=== PATIENT | male | born 1965 | race Caucasian/White ===

== ENCOUNTER 2022-07-14 01:18 | Emergency (ER) | payer SELFPAY ==
[2022-07-14] MEDS ORDERED: TETRACAINE HCL 0.5% 4ML OPTH ONE (01:34)
[2022-07-14] MEDS ORDERED: HYDROCODONE/APAP 10/325 TAB ONE (01:34)
[2022-07-14] MEDS ORDERED: FLUORESCEIN SODIUM 1 MG/WRAP ONE (01:34)
[2022-07-14] MEDS ORDERED: NEO/POLY/DEX OPTH 3.5 GM TUBE ONE (02:58)
[2022-07-14] MEDS ORDERED: CYCLOPENTOLATE 2% OPTH 2 ML ONE (02:58)
--- NOTE | 2022-07-14 03:02 | ER ---
Nurse's Notes [facility] Name: Brayden Goode Age: 57 yrs Sex: Male : 1965 Arrival Date: 07/14/2022 Time: 01:18 Bed 8 Private MD: Diagnosis: Photokeratitis, bilateral;Ocular pain, left eye;Ocular pain, right eye Presentation: 07/14 01:30 Chief complaint: Patient states: I am not sure what I've done to my eyes but the both kd3 hurt so much and i cannot open them. the pain started about an hour ago. the only things i can think of is, i was staring at a fluorescent light about three hours ago. The bulb didn't bust or anything. 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 Coronavirus screen: Vaccine status: Patient reports being unvaccinated. Ebola Screen: No symptoms or risks identified at this time. Mechanism of Injury: unknown. Initial Sepsis Screen: Does the patient meet any 2 criteria? No. Patient's initial sepsis screen is negative. Does the patient have a suspected source of infection? No. Patient's initial sepsis screen is negative. Risk Assessment: Do you want to hurt yourself or someone else? Patient reports no desire to harm self or others. Onset of symptoms was July 14, 2022. 01:30 Method Of Arrival: Ambulatory kd3 01:30 Acuity: TAYLOR 3 kd3 01:35 The patient reports a positive loss of vision. kd3 Triage Assessment: 01:33 General: Appears uncomfortable, Behavior is calm, cooperative. Pain: Complains of pain kd3 in right eye and left eye. EENT: Eyes redness and tears noted to both eyes. . Neuro: Level of Consciousness is awake, alert, obeys commands, Oriented to person, place, time, situation. Cardiovascular: Patient's skin is warm and dry. Respiratory: Airway is patent Trachea midline Respiratory effort is even, unlabored, Respiratory pattern is regular, symmetrical. Historical: - Allergies: 01:37 haloperidol (bulk); kd3 - Home Meds: 01:33 None [Active]; kd3 - PMHx: 01:33 None; kd3 - Immunization history:: Adult Immunizations up to date. - Social history:: Smoking status: Patient reports the use of cigarette tobacco products, smokes one-half pack cigarettes per day. - Family history:: not pertinent. Screenin:34 Abuse screen: Denies threats or abuse. Denies injuries from another. Nutritional kd3 screening: No deficits noted. Tuberculosis screening: No symptoms or risk factors identified. Fall Risk None identified. Assessment: 01:35 EENT: Sclera/Cornea are reddened in outer aspect of conjuctiva of right eye, iris of kd3 right eye, inner aspect of conjuctiva of right eye, outer aspect of conjuctiva of left eye, iris of left eye, inner aspect of conjunctiva of left eye and left inner canthus. 01:54 Reassessment: No changes from previously documented assessment. Patient and/or family kd3 updated on plan of care and expected duration. Pain level reassessed. Patient is alert, oriented x 3, equal unlabored respirations, skin warm/dry/pink. Vital Signs: 01:30 BP 157 / 100; Pulse 89; Resp 23; Temp 98.1(O); Pulse Ox 96% on R/A; Weight 79.38 kg; kd3 Height 5 ft. 9 in. (175.26 cm); Pain 10/10; 01:53 BP 147 / 97; Pulse 82; Resp 19; Pulse Ox 98% on R/A; kd3 03:37 BP 125 / 98; Pulse 80; Resp 18 S; Pulse Ox 98% on R/A; as6 01:30 Body Mass Index 25.84 (79.38 kg, 175.26 cm) kd3 ED Course: 01:18 Patient arrived in ED. ja2 01:24 Eduardo Castellanos MD is Attending Physician. celeste 01:30 Fernanda Jarrett RN is Primary Nurse. kd3 01:33 Triage completed. kd3 01:33 Arm band placed on right wrist. kd3 01:34 Patient has correct armband on for positive identification. kd3 01:34 No provider procedures requiring assistance completed. kd3 03:01 Obdulio Burton MD is Referral Physician. celeste 03:38 Patient did not have IV access during this emergency room visit. as6 Administered Medications: 01:38 Drug: [place] (HYDROcodone-acetaminophen) 10 mg-325 mg 1 tabs Route: PO; as6 03:38 Follow up: Response: No adverse reaction as6 02:13 Drug: Tetracaine Drops 0.5 % 1 drops Route: Ophthalmic; Site: both eyes; tw5 03:38 Follow up: Response: No adverse reaction as6 02:50 Drug: Fluorescein Strip 1 strip Route: Ophthalmic; Site: both eyes; as6 03:38 Follow up: Response: No adverse reaction as6 03:00 CANCELLED (Duplicate Order): Maxitrol Drops 2 drops Ophthalmic [facility] 03:32 Drug: Cyclogyl Drops (1 %) 1 drops Route: Ophthalmic; Site: both eyes; kd3 03:38 Follow up: Response: No adverse reaction as6 03:32 Drug: Maxitrol Ointment 3.5 mg/g-10,000 unit/g-0.1% 1 application Route: Ophthalmic; kd3 Site: both eyes; 03:38 Follow up: Response: No adverse reaction as6 Medication: 01:35 VIS not applicable for this client. kd3 Outcome: 03:01 Discharge ordered by . celeste 03:37 Discharged to home ambulatory, with significant other. as6 03:37 Condition: stable 03:37 Discharge instructions given to patient, significant other, Instructed on discharge instructions, follow up and referral plans. medication usage, Demonstrated understanding of instructions, follow-up care, medications, Prescriptions given X 1. 03:39 Patient left the ED. as6 Signatures: Eduardo Castellanos MD MD cha Alexander, Adrianne Ferrer tw5 Tutu Humphries RN RN as6 Fernanda Jarrett RN RN kd3 Corrections: (The following items were deleted from the chart) 01:37 01:33 Allergies: No Known Allergies; kd3 kd3
--- NOTE | 2022-07-14 03:03 | EDPHYS ---
Physician Documentation [facility] Name: Brayden Goode Age: 57 yrs Sex: Male : 1965 Arrival Date: 07/14/2022 Time: 01:18 Bed 8 Private MD: ED Physician Eduardo Castellanos HPI: 07/14 02:55 This 57 yrs old Male presents to ER via Ambulatory with complaints of Eye celeste Injury. 02:55 The patient sustained uv. Onset: The symptoms/episode began/occurred 1 day(s) ago. celeste Duration: the symptoms are continuous. Aggravated by blinking, closing eye, light, opening eye, Alleviated by nothing, covering eye. Associated signs and symptoms: Pertinent positives: headache. Patient does not utilize any form of vision correction. Severity of symptoms: At their worst the symptoms were moderate severe in the emergency department the symptoms are unchanged. The patient has not experienced similar symptoms in the past. Historical: - Allergies: 01:37 haloperidol (bulk); kd3 - Home Meds: 01:33 None [Active]; kd3 - PMHx: 01:33 None; kd3 - Immunization history:: Adult Immunizations up to date. - Social history:: Smoking status: Patient reports the use of cigarette tobacco products, smokes one-half pack cigarettes per day. - Family history:: not pertinent. ROS: 02:55 Constitutional: Negative for fever, chills, and weight loss, ENT: Negative for injury, celeste pain, and discharge, Neck: Negative for injury, pain, and swelling, Cardiovascular: Negative for chest pain, palpitations, and edema, Respiratory: Negative for shortness of breath, cough, wheezing, and pleuritic chest pain, Abdomen/GI: Negative for abdominal pain, nausea, vomiting, diarrhea, and constipation, Back: Negative for injury and pain, : Negative for injury, bleeding, discharge, and swelling, MS/Extremity: Negative for injury and deformity, Skin: Negative for injury, rash, and discoloration, Neuro: Negative for headache, weakness, numbness, tingling, and seizure, Psych: Negative for depression, anxiety, suicide ideation, homicidal ideation, and hallucinations, Allergy/Immunology: Negative for hives, rash, and allergies, Endocrine: Negative for neck swelling, polydipsia, polyuria, polyphagia, and marked weight changes, Hematologic/Lymphatic: Negative for swollen nodes, abnormal bleeding, and unusual bruising. 02:55 Eyes: Positive for pain, photophobia, redness. Exam: 02:55 Visual Acuity: The patient's visual acuity was not tested, because the patient was not celeste able to be examined. 02:55 Constitutional: This is a well developed, well nourished patient who is awake, alert, and in no acute distress. Head/Face: Normocephalic, atraumatic. ENT: Nares patent. No nasal discharge, no septal abnormalities noted. Tympanic membranes are normal and external auditory canals are clear. Oropharynx with no redness, swelling, or masses, exudates, or evidence of obstruction, uvula midline. Mucous membranes moist. Neck: Trachea midline, no thyromegaly or masses palpated, and no cervical lymphadenopathy. Supple, full range of motion without nuchal rigidity, or vertebral point tenderness. No Meningismus. Chest/axilla: Normal chest wall appearance and motion. Nontender with no deformity. No lesions are appreciated. Cardiovascular: Regular rate and rhythm with a normal S1 and S2. No gallops, murmurs, or rubs. Normal PMI, no JVD. No pulse deficits. Respiratory: Lungs have equal breath sounds bilaterally, clear to auscultation and percussion. No rales, rhonchi or wheezes noted. No increased work of breathing, no retractions or nasal flaring. Abdomen/GI: Soft, non-tender, with normal bowel sounds. No distension or tympany. No guarding or rebound. No evidence of tenderness throughout. Back: No spinal tenderness. No costovertebral tenderness. Full range of motion. Male : Normal genitalia with no discharge or lesions. Skin: Warm, dry with normal turgor. Normal color with no rashes, no lesions, and no evidence of cellulitis. MS/ Extremity: Pulses equal, no cyanosis. Neurovascular intact. Full, normal range of motion. Neuro: Awake and alert, GCS 15, oriented to person, place, time, and situation. Cranial nerves II-XII grossly intact. Motor strength 5/5 in all extremities. Sensory grossly intact. Cerebellar exam normal. Normal gait. Psych: Awake, alert, with orientation to person, place and time. Behavior, mood, and affect are within normal limits. 02:55 Eyes: Pupils: equal, round, and reactive to light and accomodation, Extraocular movements: intact throughout, Conjunctiva: injected, bilaterally, Corneas: are normal, no acute changes, Sclera: no appreciated abnormality, Anterior chamber: normal, no acute changes, Lids and lashes: appear normal, no acute changes, no evidence of trauma, funduscopic exam reveals no obvious abnormalities. Vital Signs: 01:30 BP 157 / 100; Pulse 89; Resp 23; Temp 98.1(O); Pulse Ox 96% on R/A; Weight 79.38 kg; kd3 Height 5 ft. 9 in. (175.26 cm); Pain 10/10; 01:53 BP 147 / 97; Pulse 82; Resp 19; Pulse Ox 98% on R/A; kd3 03:37 BP 125 / 98; Pulse 80; Resp 18 S; Pulse Ox 98% on R/A; as6 01:30 Body Mass Index 25.84 (79.38 kg, 175.26 cm) kd3 MDM: 01:24 Patient medically screened. celeste 02:55 Differential diagnosis: Corneal abrasion of Corneal ulcer of Foreign body in Acute celeste iritis of Acute glaucoma in Ultraviolet keratitis in both eyes. Data reviewed: vital signs, nurses notes. Data interpreted: Pulse oximetry: on room air is 98 %. Test interpretation: by ED physician or midlevel provider:. Counseling: I had a detailed discussion with the patient and/or guardian regarding: the historical points, exam findings, and any diagnostic results supporting the discharge/admit diagnosis, the need for outpatient follow up, for definitive care, an opthalmologist. Physician consultation: Obdulio Burton MD would like medications started, maxitrol,cyclogyl. 07/14 01:25 Order name: Eye Tray; Complete Time: 01:38 celeste Administered Medications: 01:38 Drug: [place] (HYDROcodone-acetaminophen) 10 mg-325 mg 1 tabs Route: PO; as 03:38 Follow up: Response: No adverse reaction as6 02:13 Drug: Tetracaine Drops 0.5 % 1 drops Route: Ophthalmic; Site: both eyes; tw5 03:38 Follow up: Response: No adverse reaction as6 02:50 Drug: Fluorescein Strip 1 strip Route: Ophthalmic; Site: both eyes; as6 03:38 Follow up: Response: No adverse reaction as6 03:00 CANCELLED (Duplicate Order): Maxitrol Drops 2 drops Ophthalmic in both eyes once celeste 03:32 Drug: Cyclogyl Drops (1 %) 1 drops Route: Ophthalmic; Site: both eyes; kd3 03:38 Follow up: Response: No adverse reaction as6 03:32 Drug: Maxitrol Ointment 3.5 mg/g-10,000 unit/g-0.1% 1 application Route: Ophthalmic; kd3 Site: both eyes; 03:38 Follow up: Response: No adverse reaction as6 Disposition Summary: 07/14/22 03:01 Discharge Ordered Location: Home [facility] Problem: new [facility] Symptoms: have improved celeste Condition: Fair celeste Diagnosis - Photokeratitis, bilateral celeste - Ocular pain, left eye celeste - Ocular pain, right eye celeste Followup: [facility] - With: Obdulio Burton MD - When: Today - Reason: Recheck today's complaints, Re-evaluation by your physician Discharge Instructions: - Discharge Summary Sheet celeste - Ultraviolet Keratitis celeste - How to Use Eye Drops and Eye Ointments celeste - Ultraviolet Keratitis, [id number] [facility] Forms: - Medication Reconciliation Form [facility] - Thank You Letter celeste - Antibiotic Education celeste - Prescription Opioid Use [facility] Prescriptions: - Tylenol-Codeine #3 300 mg-30 mg Oral - take 2 tablet by ORAL route every 6 hours; 20 tablet; Refills: 0, Product celeste Selection Permitted Signatures: Eduardo Castellanos MD MD cha Wood, Tiffany tw5 Tutu Humphries RN RN as6 Fernanda Jarrett RN RN kd3 Corrections: (The following items were deleted from the chart) 01:37 01:33 Allergies: No Known Allergies; kd3 kd3 03:00 02:55 Maxitrol Drops 2 drops Ophthalmic in both eyes once ordered. [facility]
[2022-07-14 03:48] VITALS: TEMP 98.1
[2022-07-14 03:49] VITALS: O2SAT 98
[2022-07-14 03:50] VITALS: BP 125/98
== END 2022-07-14 03:39 | disposition home or self-care (01) ==
LOC: ER 01:18
DX: H16.133 Photokeratitis, bilateral (principal)
CPT/HCPCS: 99283